=== PATIENT | male | born 1985 | race Caucasian/White ===

== ENCOUNTER 2017-06-14 18:50 | Emergency (ER) | payer OTHER ==
[~2017-06-14] VITALS: Ht 182.8 cm; Wt 93.9 kg
[~2017-06-14 18:50] MED LIST: AMOXICILLIN500 MG PO; AUGMENTIN 875 M1 TAB PO; CLARITIN10 MG PO; FLEXERIL10 MG PO; HYDROCODONE BIT1 T11 PO; IBU800 MG PO; KEFLEX500 MG PO; MOTRIN800 MG PO; NO DAILY MEDS; PENICILLIN VK500 MG PO; PYRIDIUM200 MG PO; TRAMADOL HCL50 MG PO; ULTRAM50 MG PO; VICODIN 5/500 505 MG PO; VICODIN ES 7501 TAB PO; ZITHROMAX Z PA250 MG PO; ZOFRAN ODT4 MG SL; ZOFRAN4 MG PO
[2017-06-14] MEDS ORDERED: NAPROSYN500 MG PO (20:30)
== END 2017-06-14 23:17 | disposition home or self-care (01) ==
LOC: ED 18:50
DX: M25.512 Pain in left shoulder (principal); F17.200 Nicotine dependence, unspecified, uncomplicated

== ENCOUNTER 2017-06-18 13:23 | Emergency (ER) | payer OTHER ==
[~2017-06-18] VITALS: Ht 182.8 cm; Wt 93.9 kg
[~2017-06-18 13:23] MED LIST changes: +NAPROSYN500 MG PO
[2017-06-18] MEDS ORDERED: CYCLOBENZAPRINE5 M3 PO (15:32)
[2017-06-18] MEDS ORDERED: MEDROL DOSEPAK4 MG PO (15:32)
== END 2017-06-18 17:01 | disposition home or self-care (01) ==
LOC: ED 13:23
DX: S49.92XA Unspecified injury of left shoulder and upper arm, initial encounter (principal); M25.512 Pain in left shoulder; F17.200 Nicotine dependence, unspecified, uncomplicated; X58.XXXA Exposure to other specified factors, initial encounter; Y93.89 Activity, other specified; Y92.89 Other specified places as the place of occurrence of the external cause; Y99.9 Unspecified external cause status

== ENCOUNTER → 2020-11-03 | Outpatient (CLI) | payer OTHER ==
[~2020-11-03] MED LIST changes: +CYCLOBENZAPRINE5 M3 PO; +MEDROL DOSEPAK4 MG PO; +ZITHROMAX250 MG PO
== END | disposition home or self-care (01) ==
LOC: COVID19 15:09
PROVIDERS: ATTEND Internal Medicine
DX: Z20.822 Contact with and (suspected) exposure to COVID-19 (principal)

== ENCOUNTER 2020-11-08 14:26 | Emergency (ER) | payer OTHER ==
[~2020-11-08] VITALS: Ht 180.3 cm; Wt 101.2 kg
== END 2020-11-08 15:06 | disposition home or self-care (01) ==
LOC: ED 14:26
DX: R09.89 Other specified symptoms and signs involving the circulatory and respiratory systems (principal); F17.200 Nicotine dependence, unspecified, uncomplicated; Z20.822 Contact with and (suspected) exposure to COVID-19

== ENCOUNTER → 2021-01-12 | Outpatient (CLI) | payer OTHER | END | disposition home or self-care (01) | LOC: COVID19 13:08 | PROVIDERS: ATTEND Internal Medicine | DX: Z11.52 Encounter for screening for COVID-19 (principal) ==

== ENCOUNTER 2021-03-31 11:48 | Emergency (ER) | payer OTHER ==
[2021-03-31 14:14] LABS: BASO % 0.4 % (0.0-1.0); EOS # 0.3 10*3/uL (0.0-0.4); EOS % 3.5 % (1.0-4.0); HEMATOCRIT 48.5 % (42.0-52.0); LYMPH # 2.2 10*3/uL (1.3-4.4); MEAN CELL VOLUME 91.5 fl (80.0-94.0); MEAN CORPUSCULAR HGB 32.3 pg (27.0-31.0); MEAN CORPUSCULAR HGB CONC 35.3 g/dl (33.0-37.0); MEAN PLATELET VOLUME 10.5 fl (9.6-12.3); MONO # 0.5 10*3/uL (0.1-1.0); MONO % 5.3 % (3.0-9.0); NEUT # 6.7 10*3/uL (2.3-7.9); NEUT % 68.3 % (47.0-73.0); PLATELET COUNT AUTOMATED 224 10*3/uL (130-400); RED CELL DISTRI WIDTH 12.1 % (0-14.5); WHITE BLOOD COUNT 9.9 10*3/uL (4.8-10.8)
[2021-03-31 14:33] LABS: ALKALINE PHOSPHATASE 91 U/L (45-117); BUN 16 mg/dl (7-24); CHLORIDE 108 mmol/L (98-107); CREATININE 0.97 mg/dL (0.70-1.30); LIPASE 87 U/L (73-393); POTASSIUM 4.2 mmol/L (3.5-5.1); SGOT/AST 21 IU/L (3-35); SGPT/ALT 39 U/L (12-78); SODIUM 139 mmol/L (136-145); TOTAL PROTEIN 7.6 gm/dL (6.4-8.2)
[2021-03-31 14:34] LABS: TROPONIN I < 0.015 ng/ml (<0.045)
== END 2021-03-31 15:35 | disposition home or self-care (01) ==
LOC: ED 11:48
PROVIDERS: Physician Assistant
DX: R42 Dizziness and giddiness (principal); R53.83 Other fatigue; H53.8 Other visual disturbances

== ENCOUNTER 2021-10-11 14:22 | Emergency (ER) | payer OTHER | END 2021-10-11 15:05 | disposition home or self-care (01) | LOC: ED 14:22 | DX: B34.9 Viral infection, unspecified (principal); Z20.822 Contact with and (suspected) exposure to COVID-19 ==

== ENCOUNTER 2023-05-22 10:38 | Emergency (ER) | payer OTHER ==
[~2023-05-22] VITALS: Wt 90.7 kg
== END 2023-05-22 14:16 | disposition home or self-care (01) ==
LOC: ED 10:38
DX: S43.401A Unspecified sprain of right shoulder joint, initial encounter (principal); X50.1XXA Overexertion from prolonged static or awkward postures, initial encounter; Y93.43 Activity, gymnastics; Y92.89 Other specified places as the place of occurrence of the external cause; Y99.8 Other external cause status

== ENCOUNTER 2023-08-05 14:59 | Emergency (ER) | payer OTHER ==
[~2023-08-05] VITALS: Ht 182.8 cm; Wt 89.4 kg
[2023-08-05] MEDS ORDERED: SEPTDS PO (17:03)
== END 2023-08-05 17:21 | disposition home or self-care (01) ==
LOC: ED 14:59
DX: L08.9 Local infection of the skin and subcutaneous tissue, unspecified (principal)

== ENCOUNTER 2024-10-22 20:51 | Emergency (ER) | payer SELFPAY ==
[~2024-10-22] VITALS: Ht 182.8 cm; Wt 80.7 kg
[~2024-10-22 20:51] MED LIST changes: +SEPTDS PO
== END 2024-10-22 22:58 | disposition home or self-care (01) ==
LOC: ED 20:51
DX: F43.9 Reaction to severe stress, unspecified (principal)